=== PATIENT | female | born 1950 | race Caucasian/White ===

== ENCOUNTER 2021-09-05 13:59 | Observation (INO) | payer MEDICARE, OTHER ==
[2021-09-05 14:55] LABS: CARBON DIOXIDE,CO2 26.7 mmol/L (21.0-32.0)
[2021-09-05 14:56] LABS: CORONAVIRUS COVID-19 NAA NEGATIVE (NEGATIVE); INFLUENZA A NAA NEGATIVE (NEGATIVE); INFLUENZA B NAA NEGATIVE (NEGATIVE)
[2021-09-05] MEDS ORDERED: Iopamidol 755 MG/ML 500 ML Multipack Bottle IVPUSH STA (15:36)
[2021-09-05] MEDS ORDERED: Sodium Chloride 0.9% 1,000 ML IV ONE (15:55)
[2021-09-05] MEDS ORDERED: Polyethylene Glycol 3350 Powder 17 GM Packet PO PRN (17:49)
[2021-09-05] MEDS ORDERED: Acetaminophen 325 MG Tab PO PRN (17:49)
[2021-09-05] MEDS ORDERED: Ondansetron 4 MG/2 ML SDV IVPUSH PRN (17:49)
[2021-09-05] MEDS ORDERED: Albuterol/Ipratropium 3.0-0.5 MG/3 ML Neb Soln NEB PRN (18:00)
[2021-09-05] MEDS: Aspirin 81 MG Tab.EC PO SCH (20:11)
[2021-09-05] MEDS ORDERED: atorvaSTATin 20 MG Tab PO SCH (21:00)
[2021-09-06 06:16] LABS: CARBON DIOXIDE,CO2 26.5 mmol/L (21.0-32.0); POTASSIUM,K 3.9 mmol/L (3.5-5.1)
[2021-09-06] MEDS ORDERED: Levothyroxine 100 MCG Tab PO SCH (07:30)
[2021-09-06] MEDS: Aspirin 81 MG Tab.EC PO SCH (09:25)
[2021-09-06 11:39] VITALS: BP 147/74; PULSE 71
== END 2021-09-06 13:00 | disposition home or self-care (01) ==
LOC: MW.ED 13:59 → MW.MS 16:48
PROVIDERS: ADMIT Student in an Organized Health Care Education/Training Program; ATTEND Student in an Organized Health Care Education/Training Program
DX: G45.9 Transient cerebral ischemic attack, unspecified (principal); E03.9 Hypothyroidism, unspecified; K21.9 Gastro-esophageal reflux disease without esophagitis; E66.9 Obesity, unspecified; Z98.890 Other specified postprocedural states; Z88.2 Allergy status to sulfonamides; Z79.899 Other long term (current) drug therapy; Z88.0 Allergy status to penicillin; Z90.49 Acquired absence of other specified parts of digestive tract; Z20.822 Contact with and (suspected) exposure to COVID-19
CPT/HCPCS: 0240U; 36415; 70450; 70496; 70498; 70551; 71045; 80053; 80061; 81003; 82607; 84443; 84484; 85025; 85610; 85652; 85730; 93005; 93306; 96360; 99285; A9270; J7030; Q9967; 93010